=== PATIENT | female | born 1985 | race Caucasian/White ===

== ENCOUNTER 2019-11-14 13:48 | Inpatient (IN) | payer OTHER ==
[2019-11-14] MEDS ORDERED: Buffered Lidocaine 1% SYRIN* 1 ML/SYRINGE INTRADERM ONE (14:49)
[2019-11-14] MEDS ORDERED: Lactated Ringers 1000 ML Bag* 1,000 ML IV ONE (14:49)
[2019-11-14] MEDS ORDERED: Oxytocin in LR* 20 UNITS/1,000 ML BAG IVPB SCH ×2 (15:00→20:00)
[2019-11-14] MEDS ORDERED: Lactated Ringers 1000 ML Bag* 1,000 ML IV SCH ×2 (15:00→20:00)
[2019-11-14 15:34] LABS: ABS Lymphocytes 1.5 10^3/ul (1.0-4.8); ABS Monocytes 0.5 10^3/ul (0-0.8); Eosinophil % 0.3 %; Hematocrit 41 % (35-47); Hemoglobin 14.2 g/dL (12.0-16.0); Lymphocyte % 14.8 %; Mean Corpuscular HGB Conc 35 g/dL (31-36); Mean Corpuscular Hemoglobin 33 pg (27-31); Mean Corpuscular Volume 95 fL (80-97); Mean Platelet Volume 10.4 fL (7.4-10.4); Nucleated Red Blood Cells % 0.1; Platelet Count 154 10^3/uL (150-450); Red Cell Distribution Width 14 % (10-15); White Blood Count 10.1 10^3/uL (3.5-10.8)
--- NOTE | 2019-11-14 15:35 | HP ---
General Information - Reason for Visit Scheduled IOL for postdates at 42 1/7 weeks gestation. - General Information Maternal Age: 34 Grav: 5 Para: 3 SAB: 1 IEA: 0 Estimated Due Date: 10/30/19 Determined By: Early Ultrasound Gestational Age in Weeks/Days: 42 1/7 Maternal Blood Type and Rh: A Positive - Results this Serology/RPR Result: Non-Reactive Rubella Result: Immune HBsAg Result: Negative HIV Result: Negative GBS Culture Result: Negative Past Medical History Delivery History: Hx Uncomplicated Vaginal Delivery Pertinent Past Medical History: Non-Contributory Pertinent Past Surgical History: See Records - breast augmentation Pertinent Family History: Non-Contributory - Antepartal Records Antepartal Records: Reviewed, Complicated by: - postdates gestation Review of Systems Constitutional: Comfortable CV Complaint: No Respiratory: Shortness of Breath: No Gastrointestinal: No Nausea/Vomiting, Normal Bowel Movement Genitourinary: No Dysuria, No Bleeding, No Leaking Fluid Musculoskeletal: No Complaint, No Epigastric Pain Neurological: No Headache, No Visual Changes Movement: Normal Exam Allergies/Adverse Reactions: Allergies No Known Allergies Allergy (Verified 10/02/14 01:25) T-98.8, P-84, R-18, BP-113/75, O2-100% - Measurements Height: 5 ft 4 in Weight: 74.389 kg Weight in lbs: 164.888499 Body Mass Index (BMI): 28.1 Pre- Weight: 54.431 kg Weight Gained This : 44 lbs and 0 ozs - Exam Breast: Breast Exam Deferred CVA: No CVA Tenderness Extremities: No Edema Heart: Normal Rhythm/Heart Sounds HEENT: No Significant Findings Lungs: Clear Bilaterally Rectal: Rectal Exam Deferred Reflexes: DTR 2+ Thyroid: No Thyromegaly - Abdominal Exam Abdomen Exam: Non-Tender, Fundal Height Consistent with Dates - Ultrasound/Biophysical Profile Ultrasound Status: Not Done Targeted Exam Findings See L&D Outpatient Visit Provider Note for Findings: N/A Estimated Weight: 8.5# Cervical Exam: 2cm Effacement: 50% Station: -3 Presenting Part: Vertex Membrane Status: Intact Bleeding/Discharge: None EFM Findings - External Monitor Findings Baseline Heart Rate: 150 External Monitor Findings: Accelerations Present, No Pattern of Variable or Late Decelerations, Variability Moderate, Baseline Stable Contractions: Irregular, Mild, 45-90 Seconds Assessment/Plan - Assessment 34 year old at 42 1/7 weeks gestation here for IOL for postdates , no evidence of acidemia, membranes intact. - Obstetrical Risk Factors Obstetrical Risk Factors: Post-Dates - Plan Plan: Admit - Anticipate Vaginal Delivery - Date/Time of Admission Date of Admission: 11/14/19 Time of Admission: 15:30
[2019-11-14 15:58] LABS: Urine Benzodiazepine Screen None Detected (None Detect); Urine Opiates Screen None Detected (None Detect)
--- NOTE | 2019-11-14 17:23 | PN ---
Progress Note - Progress Note Date of Service: 11/14/19 SOAP: Subjective: Pt reports increased intensity of ctx. Sitting on ball, breathing through ctx, coping well. at bedside. Objective: FHR: Baseline 130/ moderate variability/ + accels/ no decels UCs: 2-3 minutes Pitocin at 4mu/ min Membranes intact Assessment: Pt appears to be progressing into active labor. No evidence of acidemia. Plan: Will recheck pt in about an hour or PRN. Anticipate progression to .
--- NOTE | 2019-11-14 17:48 | PN ---
Progress Note - Progress Note Date of Service: 11/14/19 SOAP: Subjective: Pt reported increased pressure, requested cervical exam. Coping well, at bedside. Objective: Cervix: 7cm/ 80%/ 0 station/ bulging bag/ vtx UCs: 2-3 minutes FHR: Baseline 125/ moderate variability/ + accels/ no decels/ FHR tracing dropped to maternal baseline during ctx d/t maternal positioning, but when FHR monitor held on abdomen through ctx, no decels noted. Assessment: Pt making rapid progress. No evidence of acidemia. Plan: Per pt's preferences, Pitocin stopped. Following reactive EFM tracing, continuous monitoring D/C'd , will monitor intermittently. Pt advised can call anesthesia for spinal if desired. She will wait and see. Anticipate .
[2019-11-14] MEDS ORDERED: fentaNYL* 50 MCG/ML 2 ML VIAL (100 MCG VIAL) ONE (17:50)
[2019-11-14] MEDS ORDERED: Bupivacaine 0.25% SDV PF* 10 ML VIAL INJ ONE (17:53)
[2019-11-14] MEDS ORDERED: Witch Hazel PAD* JAR TOPICAL PRN (19:56)
[2019-11-14] MEDS ORDERED: Glycerin ADULT SUPP PR PRN (19:56)
[2019-11-14] MEDS ORDERED: Dibucaine 1% 28.35 GM TUBE PR PRN (19:56)
[2019-11-14] MEDS ORDERED: Acetaminophen TAB* 325 MG PO PRN (19:56)
--- NOTE | 2019-11-14 20:10 | PROCNOTE ---
[facility] OB: Delivery Note - Delivery A Date of : 11/14/19 Time of : 19:[address] Sex: Female Weight at : 3.544 kg Score 1 Minute: 9 Score 5 Minutes: 9 Gestational Age in Weeks and Days at Delivery: 42 Weeks and 1 Days Delivery Method: Spontaneous Vaginal Labor: Induced Did Patient attempt ?: N/A, No Previous Amniotic Fluid: Clear Anesthesia/Analgesia: ITF/Spinal for Labor Delivered By: Mattie Rivera - Nursery Level of Nursery: Regular/Bedside - Perineum Perineal Injury: 1st Degree Perineal Repair: By Delivering Practioner - Events Delivery Events of Note: Pitocin During Labor - Additional Delivery Notes Additional Delivery Notes: Pt admitted for IOL for postdates at 42 1/7 weeks gestation. Pitocin initiated and soon after pt began to contract rapidly. Pt rapidly progressed to 7cm at which time Pitocin was discontinued. Pt soon requested and received an intrathecal for pain relief with good relief. AROM then performed to clear fluid. Pt continued to progress to full dilation and an urge to push. Pt pushed with good effort and steady descent. Pt coached through slow, controlled delivery of the head. Nuchal cord x1 noted, infant delivered and cord unwrapped. Infant with vigorous cry and good tone, placed on maternal abdomen and dried. After cord pulsation ceased cord clamped x2 and cut by 's father. Placenta soon delivered with gentle cord traction, spontaneous and emanuel. Bleeding minimal and fundus firm, Pitocin initiated at 250 cc/ hr. Inspection of the perineum revealed first degree laceration. Repaired using 3-0 Rapide resulting in good hemostasis and tissue approximation. Some clots expressed from lower uterine segment, then bleeding was minimal. Pt and stable at this time, anticipate normal course.
[2019-11-14] MEDS: Ibuprofen TAB* 600 MG PO PRN (20:31)
[2019-11-14] MEDS: Docusate CAP* 100 MG PO SCH (20:31)
[2019-11-14] MEDS ORDERED: Lidocaine 1% INJ* 10 MG/ML 30 ML SDV ONE (22:35)
[2019-11-15] MEDS: Ibuprofen TAB* 600 MG PO PRN ×3 (03:06→15:57)
[2019-11-15 06:46] LABS: ABS Basophils 0.1 10^3/ul (0-0.2); ABS Monocytes 0.9 10^3/ul (0-0.8); ABS Neutrophils 12.8 10^3/ul (1.5-7.7); Eosinophil % 0.3 %; Hematocrit 38 % (35-47); Hemoglobin 12.9 g/dL (12.0-16.0); Lymphocyte % 12.5 %; Mean Corpuscular HGB Conc 34 g/dL (31-36); Mean Corpuscular Hemoglobin 33 pg (27-31); Mean Corpuscular Volume 95 fL (80-97); Mean Platelet Volume 9.8 fL (7.4-10.4); Platelet Count 135 10^3/uL (150-450); Red Blood Count 3.94 10^6 /uL (3.70-4.87); Red Cell Distribution Width 14 % (10-15); White Blood Count 15.7 10^3/uL (3.5-10.8)
[2019-11-15] MEDS ORDERED: Ferrous Gluconate TAB* 324 MG TAB PO SCH (09:00)
[2019-11-15] MEDS ORDERED: Tetan/Diph/Pertus SYR(Tdap)* 0.5 ML SYR(BOOSTRIX) use SYR contains LATEX IM ONE (09:00)
[2019-11-15] MEDS: Docusate CAP* 100 MG PO SCH ×3 (09:45→21:38)
[2019-11-16] MEDS: Ibuprofen TAB* 600 MG PO PRN ×2 (02:11→07:57)
[2019-11-16] MEDS: Docusate CAP* 100 MG PO SCH (07:57)
[2019-11-16 08:11] VITALS: BP 106/62
== END 2019-11-16 10:55 | disposition home or self-care (01) | DRG 807 ==
LOC: MCHOBOUT 13:48 → MCHOB 15:26
PROVIDERS: ADMIT Midwife; ATTEND Midwife
PROC: 10E0XZZ Delivery of Products of Conception, External Approach (ICD-10-PCS; principal; 2019-11-14)
PROC: 3E033VJ Introduction of Other Hormone into Peripheral Vein, Percutaneous Approach (ICD-10-PCS; 2019-11-14)
PROC: 10907ZC Drainage of Amniotic Fluid, Therapeutic from Products of Conception, Via Natural or Artificial Opening (ICD-10-PCS; 2019-11-14)
PROC: 0HQ9XZZ Repair Perineum Skin, External Approach (ICD-10-PCS; 2019-11-14)
DX: O48.1 Prolonged pregnancy (principal); Z37.0 Single live birth; O70.0 First degree perineal laceration during delivery; Z3A.49 Greater than 42 weeks gestation of pregnancy
CPT/HCPCS: 36415; 80307; 85025; 86850; 86900; 86901; 90715; A9270-GY; J3010; J3490